=== PATIENT | female | born 1965 ===

== ENCOUNTER 2018-06-07 06:48 | Day surgery (SDC) | payer OTHER ==
[2018-05-31 13:26] VITALS: BMI 23.3
[2018-06-07] MEDS ORDERED: Midazolam 2 MG/2 ML VIAL ONE (09:03)
[2018-06-07] MEDS ORDERED: Propofol 10 mg/ml Inj (20 ML) ONE (09:03)
[2018-06-07] MEDS ORDERED: Strong Iodine Topical Sol. 5%-10% ONE (09:17)
[2018-06-07] MEDS ORDERED: Ferric Subsulfate Sol(60 mL) ONE (09:18)
[2018-06-07] MEDS ORDERED: ACETIC ACID 3% 30 ML LIQUID MC ONE (09:18)
[2018-06-07] MEDS ORDERED: ePHEDrine 50 mg/ml Inj ONE (09:24)
[2018-06-07] MEDS ORDERED: Lactated Ringer's 1,000 ML IV ONE ×2 (09:54)
[2018-06-07] MEDS ORDERED: Oxycodone/Acetaminophen 5/325 mg Tab PO PRN (10:24)
[2018-06-07] MEDS ORDERED: HYDROmorphone 1 mg/ml ISec IVP PRN (10:27)
[2018-06-07] MEDS ORDERED: Lactated Ringer's 1,000 ML IV SCH (10:30)
[2018-06-07 10:36] VITALS: RESP 18
[2018-06-07 11:55] VITALS: O2SAT 100
[2018-06-07 13:52] VITALS: BP 89/54; PULSE 57; TEMP 97.9
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
--- NOTE | 2018-06-07 21:10 | OP ---
Copied To: Daniele Chisholm MD Attending MD: Daniele Chisholm MD PROCEDURE DATE: 06/07/2018 PREOPERATIVE DIAGNOSES: This is a 52-year-old G2, P2-0-0-2 with abnormal uterine bleeding, with a known endometrial polyp at the fundus, seen by sonohysterogram. POSTOPERATIVE DIAGNOSES: Endometrial polyps and endocervical polyps. PROCEDURE: Cervical dilation and hysteroscopic endometrial and endocervical polypectomy with MyoSure LITE. SURGEON: Daniele Chisholm MD DEFICIT: About 500 mL. ESTIMATED BLOOD LOSS: Less than 10 mL. FINDINGS: Anteverted uterus with a single polyp seen at the fundus from the anterior wall on the left side of the cavity. There were also some polyps seen at the lower uterine segment and there were a few polyps seen in the endocervical canal. The right ostium was clearly visualized and the left ostium could not be visualized. SPECIMEN: Polypoid tissue removed with the MyoSure. COMPLICATIONS: None. ANESTHESIOLOGIST: Marlo Ronquillo MD DESCRIPTION OF PROCEDURE: The patient was taken to the operating room with IV running and was placed under general anesthesia. A time-out was done. She was then prepped and draped in a usual sterile fashion in the dorsal lithotomy position. A weighted speculum was placed in the posterior fornix of the vagina and a Dodd speculum was placed against the anterior wall of the vagina. A single tooth tenaculum was placed at the anterior lip of the cervix. The cervix was gently dilated and it felt as if the dilator could not be placed past the internal os. It was decided to place the scope within the opening and see if a way could be found into the cavity visually, and so, the scope was placed through the cervical os and had to be angled upward and was able to be placed into the cavity with the findings as noted above. The MyoSure LITE was then applied to all the endometrial polyps to be removed. All instruments were then removed from the vagina. The tenaculum was removed. Pressure was applied to the tenaculum sites using a sponge on a stick. Monsel' s paste as then applied to the tenaculum sites and hemostasis was noted. The patient was then extubated and taken to the recovery room in stable condition. Daniele Chisholm MD [facility] # [id number] JACKIE
== END 2018-06-07 14:09 | disposition home or self-care (01) ==
LOC: H.OPSURG 06:48
PROVIDERS: ATTEND Obstetrics & Gynecology
DX: N92.6 Irregular menstruation, unspecified (principal); N93.9 Abnormal uterine and vaginal bleeding, unspecified; N84.0 Polyp of corpus uteri; N84.1 Polyp of cervix uteri; D25.9 Leiomyoma of uterus, unspecified; Z83.3 Family history of diabetes mellitus; Z98.51 Tubal ligation status
CPT/HCPCS: 36415; 58558; 86850; 86900; 88305; J2001; J2250; J2704; J3010; J7030; J7120